=== PATIENT | male | born 1965 | race Native Hawaiian/Other Pacific Islander ===

== ENCOUNTER 2023-04-26 20:25 | Emergency (ER) | payer MEDICAID ==
[~2023-04-26] VITALS: Ht 175.3 cm; Wt 89.5 kg
[2023-04-26 23:00] VITALS: BP 117/81
== END 2023-04-26 23:01 | disposition home or self-care (01) ==
LOC: EMS 20:29
DX: S01.81XA Laceration without foreign body of other part of head, initial encounter (principal); E78.00 Pure hypercholesterolemia, unspecified; W18.30XA Fall on same level, unspecified, initial encounter; Y93.89 Activity, other specified; Y92.89 Other specified places as the place of occurrence of the external cause; Y99.8 Other external cause status
CPT/HCPCS: 12011; 99282; Z7502